=== PATIENT | female | born 1990 | race Caucasian/White ===

== ENCOUNTER 2022-11-29 23:57 | Emergency (ER) | payer OTHER, SELFPAY ==
[2022-11-30 00:02] VITALS: BP 152/99; PULSE 110; RESP 18; TEMP 37.6; O2SAT 95; BMI 29.3
[2022-11-30 01:07] LABS: Bilirubin Urine SMALL (NEGATIVE); Blood Urine NEGATIVE (NEGATIVE); Clarity Urine CLEAR (CLEAR); Color Urine DK. YELLOW (YELLOW); Glucose Urine UA NEGATIVE (NEGATIVE); Ketones Urine NEGATIVE (NEGATIVE); Leukocyte Esterase Urine TRACE (NEGATIVE); Nitrite Urine NEGATIVE (NEGATIVE); Protein Urine 30 mg/dL (NEG/TRACE); Specific Gravity Urine >=1.030 (1.005-1.025); pH Urine 5.5 (5.0-9.0)
--- NOTE | 2022-11-30 01:16 | ED.GENADUL1 ---
HPI - General Adult General Chief complaint: Nausea/Vomiting/Diarrhea Stated complaint: cough Time Seen by Provider: 11/30/22 01:16 History of Present Illness HPI narrative: pt presents to emergency department complaining of feeling stressed out. She states she has not been eating and had nausea. She was to be checked for diabetes. She states she's been nauseated and sweaty has not been vomiting. She thinks her glucose could be dropping. She says she feels tired and has a cough which is nonproductive. Patient is a smoker for one pack a day. She states she has a history of asthma. She's been using her inhalers without any improvement. She is complaining of dysuria and states that she went to the health Department to be checked for STDs and they also did a Pap however they did not check her for herpes at that time and she is having small amount of pain to her genitalia. She states she is noted to pinpoint admission lesions in the introitus and perineum which she thinks are herpes and she wants to be tested. Related Data Home Medications Medication Instructions Recorded Confirmed clonidine HCl 0.1 mg tablet 0.1 mg PO Q12H 11/30/22 11/30/22 Previous Rx's Medication Instructions Recorded albuterol sulfate 90 mcg/actuation 2 inh inhalation Q4H PRN shortness 11/30/22 aerosol inhaler of breath or wheezing #8.5 grams ondansetron HCl 4 mg tablet 4 mg PO Q6H PRN nausea and 11/30/22 vomiting #10 tabs Allergies Allergy/AdvReac Type Severity Reaction Status Date / Time No Known Drug Allergies Allergy Verified 11/30/22 00:09 Review of Systems ROS Status of ROS 10 or more systems reviewed and unremarkable except as noted in history and below [facility] Social History Smoking status: Current every day smoker Exam Narrative Exam Narrative: Nurses notes and vital signs reviewed and patient is not hypoxic. General: Nontoxic, Well-appearing and in no apparent distress. Skin: Warm, dry, no pallor noted. No Rash Head: Normocephalic, atraumatic. Neck: Supple, non-tender. Eye: Pupils are equal, round and EOMI. No scleral icterus. Ears, Nose, Mouth, and Throat: TM clear, no posterior oropharynx erythema or nasal mucosal hypertrophy, uvula is mid-line Oral mucosa is moist Cardiovascular: Regular Rate and Rhythm without murmur, gallop or rub. Respiratory: No accessory muscle use or respiratory distress. Lungs are clear to auscultation, no wheezing, rales or rhonchi Chest Wall: no tenderness Back: No midline thoracic or lumbar vertebral tenderness. No CVA tenderness Musculoskeletal: normal ROM, no calf or popliteal tenderness, no lower extremity edema/swelling GI: Abdomen is soft, non-distended. Normal bowel sounds. No masses appreciated. No tenderness to palpation. No rebound, guarding, or rigidity noted. : 2 external vaginal lesions to 6:00 the introitus and perineum. There is no drainage, no vesicles noted. Swabs of the lesions were obtained. Sensation is or any signs of bacterial infection noted. Neurological: A&O x4. No cranial nerve dysfunction observed. No truncal ataxia. Moves all extremities. Sensation intact. Psychiatric: Cooperative and interactive. Normal mood and affect. Constitutional Vital Signs, click to edit/add: Last Vital Signs Temp 99.7 F 11/30/22 00:02 Pulse 88 11/30/22 02:28 Resp 16 11/30/22 02:28 BP 138/72 11/30/22 02:28 Pulse Ox 99 11/30/22 02:28 O2 Del Method Room Air 11/30/22 02:28 Course Vital Signs Vital signs: Vital Signs Temperature 99.7 F 11/30/22 00:02 Pulse Rate 110 H 11/30/22 00:02 Respiratory Rate 18 11/30/22 00:02 Blood Pressure 152/99 H 11/30/22 00:02 Pulse Oximetry 95 11/30/22 00:02 Oxygen Delivery Method Room Air 11/30/22 00:02 Temperature 99.7 F 11/30/22 00:02 Pulse Rate 88 11/30/22 02:28 Respiratory Rate 16 11/30/22 02:28 Blood Pressure 138/72 11/30/22 02:28 Pulse Oximetry 99 11/30/22 02:28 Oxygen Delivery Method Room Air 11/30/22 02:28 Medical Decision Making MDM Narrative Medical decision making narrative: I discussed with patient the need to follow-up with primary care doctor. She declined antiviral therapy until the cultures are resulted. Patient was advised to stop smoking tobacco. Given a prescription for an albuterol inhaler. Zofran. Patient required a work note. She is nontoxic and stable for outpatient follow-up and treatment. At this time the patient is without objective evidence of an acute process requiring hospitalization or inpatient management. The patient has remained hemodynamically stable. No additional indication for emergent studies at this time. I answered all questions. Discussed discharge instructions including standard anticipatory guidance and what should prompt a return to the emergency department, including if they get worse are not getting better or develops any new or concerning symptoms. I've given them specific time frame in which to follow-up, and who to follow-up with. The patient demonstrates understanding. Patient is nontoxic and stable for discharge with outpatient follow-up. This note was created with the assistance of a speech recognition program. Although the intention is to generate documents that actually reflects the content of the visit, no guarantees can be provided that every mistake has been identified and corrected by editing. Lab Data Lab results reviewed: Yes I reviewed the patient's lab results Labs: Lab Results 11/30/22 Range/Units 00:40 Urine Color Dk. yellow (YELLOW) Urine Clarity Clear (CLEAR) Urine pH 5.5 (5.0-9.0) Ur Specific [place] >=1.030 A (1.005-1.025) Urine Protein 30 A (NEG/TRACE) mg/dL Urine Glucose (UA) Negative (NEGATIVE) mg/dL Urine Ketones Negative (NEGATIVE) mg/dL Urine Occult Blood Negative (NEGATIVE) Urine Nitrite Negative (NEGATIVE) Urine Bilirubin Small A (NEGATIVE) Urine Urobilinogen 1.0 (0.2-1.0) EU/dL Ur Leukocyte Esterase Trace A (NEGATIVE) Urine RBC 0-2 (0-2) #/HPF Urine WBC 10-20 A (NONE SEEN) #/HPF Ur Squamous Epith Cells Moderate A (NONE/RARE) #/LPF Urine Crystals None seen (None Seen) #/HPF Urine Bacteria Large A (NONE SEEN) #/HPF Urine Casts None seen (NONE SEEN) #/LPF Urine Mucus Large A (NONE SEEN) Ur Culture Indicated? Yes Urine HCG, Qual Negative (NEGATIVE) Discharge Plan Discharge Chief Complaint: Nausea/Vomiting/Diarrhea Clinical Impression: Chronic cough, Tobacco abuse, Herpes genitalis in women, Nausea Patient Disposition: Home, Self-Care Time of Disposition Decision: 02:16 Condition: Good Mode of Transportation: Private Vehicle Prescriptions / Home Meds: New ondansetron HCl 4 mg tablet 4 mg PO Q6H PRN (Reason: nausea and vomiting) Qty: 10 0RF albuterol sulfate 90 mcg/actuation HFA aerosol inhaler 2 inh inhalation Q4H PRN (Reason: shortness of breath or wheezing) Qty: 8.5 0RF No Action clonidine HCl 0.1 mg tablet 0.1 mg PO Q12H Instructions: How to Stop Smoking (ED), Genital Herpes Simplex (ED), Acute Nausea and Vomiting (ED) Stand Alone Forms: Portal Instructions Referrals: Scooby Muro DO [Physician] - 1 week Physician,Non-Staff, [Primary Care Provider] - 1 week Discharge Date/Time: 11/30/22 02:30
[2022-11-30 01:18] LABS: Urine Microscopic Indicated YES
[2022-11-30 01:28] LABS: Bacteria Urine LARGE #/HPF (NONE SEEN); Cast Seen? NONE SEEN #/LPF (NONE SEEN); Crystals Seen? None Seen #/HPF (None Seen); Mucus Urine LARGE (NONE SEEN); RBC Urine 0-2 #/HPF (0-2); Squamous Epithelial Cell Urine MODERATE #/LPF (NONE/RARE); Urine Culture Indicated YES
[2022-11-30 02:24] LABS: HCG Qualitative Urine* NEGATIVE (NEGATIVE)
[2022-11-30 02:28] VITALS: BP 138/72; PULSE 88; RESP 16; O2SAT 99
[2022-12-03 00:07] LABS: HSV-1 DNA Negative (Negative); HSV-2 DNA Negative (Negative)
== END 2022-11-30 02:30 | disposition home or self-care (01) ==
PROVIDERS: Emergency Provider Emergency Medicine
DX: R11.0 Nausea (principal); R05.3 Chronic cough; B00.9 Herpesviral infection, unspecified; J45.909 Unspecified asthma, uncomplicated; F17.210 Nicotine dependence, cigarettes, uncomplicated; Z79.899 Other long term (current) drug therapy
CPT/HCPCS: 81001; 84703; 87086; 87150; 87186; 99283

== ENCOUNTER 2024-08-07 23:46 | Emergency (ER) | payer OTHER, SELFPAY ==
[2024-08-07 23:52] VITALS: BP 170/110; PULSE 81; TEMP 37.1; O2SAT 100; BMI 29.3
--- NOTE | 2024-08-08 00:43 | ED_ITS ---
HPI - Dental/Oral General Chief complaint: Dental/Oral Stated complaint: TOOTH PAIN Time Seen by Provider: 08/08/24 00:00 Source: patient Mode of arrival: walk-in History of Present Illness HPI Narrative: This 34-year-old female who is on Sublocade injection and has a history of periodontal disease presents for evaluation of pain and swelling in her right maxillary area where she has severe dental decay in teeth # 4,5,6. She states the symptoms started over the weekend. She does not have any fever. She is not having difficulty breathing or swallowing. There is no facial swelling. She states she has an emergency dental appointment tomorrow and needs a note for work. She has been rinsing her mouth with antiseptic mouthwash and hydrogen peroxide. Related Data Allergies Allergy/AdvReac Type Severity Reaction Status Date / Time No Known Drug Allergies Allergy Verified 08/07/24 23:52 Review of Systems ROS Status of ROS 10 or more systems reviewed and unremark able except as noted in history and below PFSH PFSH Social History Smoking status: Current every day smoker Little interest or pleasure in doing things: not at all Feeling down, depressed, or hopeless: not at all Exam Narrative Exam Narrative: Vital signs and Nursing Notes reviewed: Patient is afebrile with a normal pulse, blood pressure is elevated 170/110, she is not hypoxic with pulse ox of 100% on room air General: Awake, alert, oriented, no acute distress, lying comfortably on the stretcher HEENT: Normocephalic atraumatic, mucous membranes are moist and pink, eyes are clear, normal conjunctiva, vision is grossly intact, teeth numbers 4 5 and 6 in the right maxilla are decayed to the gumline with mild gingival erythema and swelling. There is no appreciable periapical abscess. There is no swelling of the tongue, uvula or pharyngeal soft tissues. There is no pooling of secretions. There is no adjacent swelling in the jaw. There is no swelling in the anterior neck concerning for Fredis's angina. Speech is clear and not muffled. Neck: Supple, no meningeal signs, no anterior or posterior cervical lymphadenopathy Chest: Lungs are clear to auscultation with good air entry, there is no wheezing rhonchi or rales appreciated no accessory muscle use, patient is speaking in complete sentences-no chest wall tenderness to palpation CVS: Regular rate and rhythm S1-S2, no murmurs rubs or gallops, pulses are brisk and equal bilaterally Skin: Normal in appearance without rash,pallor, petechiae or purpura Neuro: No focal deficits Constitutional Vital Signs, click to edit/add: Last Vital Signs Temp 98.8 F 08/07/24 23:52 Pulse 81 08/07/24 23:52 Resp 18 08/07/24 23:52 BP 170/110 H 08/07/24 23:52 Pulse Ox 100 08/07/24 23:52 O2 Del Method Room Air 08/07/24 23:52 Course Vital Signs Vital signs: Vital Signs Temperature 98.8 F 08/07/24 23:52 Pulse Rate 81 08/07/24 23:52 Respiratory Rate 18 08/07/24 23:52 Blood Pressure 170/110 H 08/07/24 23:52 Pulse Oximetry 100 08/07/24 23:52 Oxygen Delivery Method Room Air 08/07/24 23:52 Temperature 98.8 F 08/07/24 23:52 Pulse Rate 81 08/07/24 23:52 Respiratory Rate 18 08/07/24 23:52 Blood Pressure 170/110 H 08/07/24 23:52 Pulse Oximetry 100 08/07/24 23:52 Oxygen Delivery Method Room Air 08/07/24 23:52 MDM - Dental/Oral MDM Narrative Medical decision making narrative: This 34-year-old female with a history of substance abuse who is currently on Sublocade presents for evaluation of dental pain and swelling. She has 3 severely decayed teeth in the right maxilla #4 5 and 6. There is some mild local erythema and gingival edema without any signs of necrotizing gingivitis or swelling of the tongue, uvula pharyngeal soft tissues. Her voice is clear there is no fullness in the anterior neck concerning for Fredis's angina. I do not appreciate any abscess formation at this time. The patient is driving and has a history of substance abuse. She was agreeable to a shot of Toradol for her pain and was given a dose of amoxicillin in the emergency department and a dose to take home to take in the morning. She requested a note for work stating that she has an emergency dental appointment tomorrow and needs to miss work to get to this appointment. She will be given a prescription for ibuprofen and a 10- day course of amoxicillin at the time of discharge and was given dental analgesia prior to discharge. She is otherwise stable for discharge. Her blood pressure was elevated at the time of arrival likely related to her pain. She is not having any additional complaints at this time. Discharge Plan Discharge Chief Complaint: Dental/Oral Clinical Impression: Toothache, Dental caries, Elevated blood pressure reading Patient Disposition: Home, Self-Care Time of Disposition Decision: 00:49 Condition: Good Print Language: Congolese Instructions: Hypertension (ED), Toothache (ED) Referrals: Physician,Non-Staff, MD [Primary Care Provider] - 1 week
[2024-08-08] MEDS: AMOXICILLIN 500 MG CAPSULE PO ×2 (01:00→01:01)
[2024-08-08] MEDS: KETOROLAC TROMETHAMINE 60 MG/2 ML VIAL IM (01:01)
[2024-08-08] MEDS: BENZOCAINE 30 ML, lidocaine HCL 15 ML MM (01:11)
== END 2024-08-08 01:26 | disposition home or self-care (01) ==
PROVIDERS: Emergency Provider Emergency Medicine
DX: K02.9 Dental caries, unspecified (principal); K08.89 Other specified disorders of teeth and supporting structures; R03.0 Elevated blood-pressure reading, without diagnosis of hypertension; F17.200 Nicotine dependence, unspecified, uncomplicated; F19.11 Other psychoactive substance abuse, in remission; Z79.899 Other long term (current) drug therapy
CPT/HCPCS: 96372; 99284; J1885